=== PATIENT | male | born 1975 | race Two or more races ===

== ENCOUNTER 2018-07-14 08:32 | Emergency (ER) | payer OTHER ==
[~2018-07-14] VITALS: Ht 177.8 cm; Wt 108.9 kg
[2018-07-14] MEDS ORDERED: ASPirin 81 mg TAB PO ONE (09:30)
[2018-07-14] MEDS ORDERED: cloNIDine HCL 0.1 MG TAB PO ONE ×2 (09:30→10:30)
[2018-07-14] MEDS ORDERED: LORazepam 2MG/ML-1ML VIAL IV ONE (09:30)
[2018-07-14 09:36] LABS: Basophils # (auto) 0 uL; Basophils % (auto) 0.7 % (0.0-2.0); Eosinophils # (auto) 0.1 uL; Eosinophils % (auto) 2.1 % (0.0-7.0); Hematocrit 48.8 % (41.0-53.0); Hemoglobin 16.6 g/dL (13.5-17.5); Lymphocytes # (auto) 1.6 uL; Lymphocytes % (auto) 29.3 % (10.0-50.0); Mean Corpuscular Hemoglobin 30.2 pg (28.0-32.0); Mean Corpuscular Hgb Conc. 34.1 g/dL (32.0-36.0); Mean Corpuscular Volume 88.7 fL (80.0-100.0); Monocytes # (auto) 0.4 uL; Neutrophils # (auto) 3.4 uL; Neutrophils % (auto) 59.9 % (37.0-80.0); Platelet Count (auto) 237 10^3/uL (140-450); White Blood Cell 5.6 10^3/uL (4.4-10.8)
[2018-07-14 09:58] LABS: Alanine Aminotransferase 27 U/L (16-61); Albumin 3.9 g/dL (3.4-5.0); Anion Gap 5 (5-15); Aspartate Aminotransferase 36 U/L (15-37); BUN/Creatinine Ratio 14.9; Blood Urea Nitrogen 14 mg/dL (7-18); Calcium 8.9 mg/dL (8.5-10.1); Carbon Dioxide 27 mmol/L (21-32); Chloride 106 mmol/L (98-107); GFR African American 113 mL/min; GFR Non-African American 93 mL/min; Glucose 113 mg/dL (74-106); Potassium 3.9 mmol/L (3.5-5.1); Sodium 138 mmol/L (136-145)
[2018-07-14 10:03] LABS: Alkaline Phosphatase 95 U/L (45-117); Bilirubin, Total 1.1 mg/dL (0.2-1.0); Total Protein 8.2 g/dL (6.4-8.2)
[2018-07-14 10:42] LABS: Urine Amorphous Crystal MANY /hpf (None Seen); Urine Bacteria NONE SEEN /hpf (None Seen); Urine Blood Negative /uL (Negative); Urine Mucus FEW (None Seen); Urine Specific Gravity 1.021 (1.001-1.035); Urine WBC 1 /hpf (0 - 3)
[2018-07-14 11:55] VITALS: BP 125/91
== END 2018-07-14 12:02 | disposition home or self-care (01) ==
LOC: ER 08:32
DX: R07.89 Other chest pain (principal); I10 Essential (primary) hypertension; Z90.49 Acquired absence of other specified parts of digestive tract
CPT/HCPCS: 36415; 71046; 80053; 81001; 84484; 85025; 93005; 96374; 99284; J2060

== ENCOUNTER 2018-07-15 20:12 | Emergency (ER) | payer OTHER ==
[~2018-07-15] VITALS: Ht 177.8 cm; Wt 99.3 kg
[2018-07-15 22:50] LABS: Basophils # (auto) 0 uL; Basophils % (auto) 0.4 % (0.0-2.0); Eosinophils # (auto) 0.1 uL; Eosinophils % (auto) 0.9 % (0.0-7.0); Hematocrit 44.8 % (41.0-53.0); Hemoglobin 15.5 g/dL (13.5-17.5); Lymphocytes # (auto) 1.8 uL; Lymphocytes % (auto) 20.1 % (10.0-50.0); Mean Corpuscular Hemoglobin 30.6 pg (28.0-32.0); Mean Corpuscular Hgb Conc. 34.5 g/dL (32.0-36.0); Mean Corpuscular Volume 88.7 fL (80.0-100.0); Monocytes # (auto) 0.5 uL; Neutrophils # (auto) 6.6 uL; Neutrophils % (auto) 72.6 % (37.0-80.0); Platelet Count (auto) 240 10^3/uL (140-450); Red Blood Cells 5.06 10^6/uL (4.5-5.90); Red Cell Distribution Width 12.7 % (11.8-14.3); White Blood Cell 9.1 10^3/uL (4.4-10.8)
[2018-07-15 22:58] LABS: Albumin 3.8 g/dL (3.4-5.0); Anion Gap 6 (5-15); Blood Urea Nitrogen 13 mg/dL (7-18); Calcium 8.5 mg/dL (8.5-10.1); Carbon Dioxide 25 mmol/L (21-32); Chloride 106 mmol/L (98-107); Glucose 138 mg/dL (74-106); Potassium 3.2 mmol/L (3.5-5.1); Sodium 137 mmol/L (136-145)
[2018-07-15 23:01] LABS: Alanine Aminotransferase 26 U/L (16-61); Aspartate Aminotransferase 18 U/L (15-37); BUN/Creatinine Ratio 13.5; GFR African American 110 mL/min; GFR Non-African American 91 mL/min
[2018-07-15 23:08] LABS: Alkaline Phosphatase 88 U/L (45-117); Bilirubin, Total 0.5 mg/dL (0.2-1.0); Total Protein 7.8 g/dL (6.4-8.2)
[2018-07-16] MEDS ORDERED: ALPRAZolam 0.25 MG TAB PO ONE (07:30)
[2018-07-16] MEDS ORDERED: POTASSIUM EFFERVESENT TAB 25 MEQ PO ONE (08:00)
[2018-07-16] MEDS ORDERED: POTASSIUM CHL 20 Meq TABLET PO ONE (09:15)
[2018-07-16 10:28] VITALS: BP 146/107
[2018-07-16 11:06] LABS: Urine Bacteria NONE SEEN /hpf (None Seen); Urine Blood Negative /uL (Negative); Urine Mucus FEW (None Seen); Urine Specific Gravity 1.019 (1.001-1.035); Urine WBC 3 /hpf (0 - 3)
== END 2018-07-16 11:40 | disposition home or self-care (01) ==
LOC: ER 20:12
DX: R07.89 Other chest pain (principal); F41.9 Anxiety disorder, unspecified; I10 Essential (primary) hypertension; R20.2 Paresthesia of skin
CPT/HCPCS: 36415; 70450; 71045; 80053; 81001; 84484; 85025; 93005

== ENCOUNTER 2019-03-09 17:31 | Emergency (ER) | payer OTHER ==
[~2019-03-09] VITALS: Ht 177.8 cm; Wt 99.8 kg
[2019-03-09 18:28] LABS: Basophils # (auto) 0.1 uL; Basophils % (auto) 0.8 % (0.0-2.0); Eosinophils # (auto) 0.1 uL; Eosinophils % (auto) 1.1 % (0.0-7.0); Hematocrit 44.6 % (41.0-53.0); Hemoglobin 15.6 g/dL (13.5-17.5); Lymphocytes % (auto) 25.4 % (10.0-50.0); Mean Corpuscular Hemoglobin 30.8 pg (28.0-32.0); Mean Corpuscular Hgb Conc. 34.9 g/dL (32.0-36.0); Mean Corpuscular Volume 88.3 fL (80.0-100.0); Monocytes # (auto) 0.7 uL; Monocytes % (auto) 8.4 % (0.0-12.0); Neutrophils # (auto) 5.1 uL; Neutrophils % (auto) 64.3 % (37.0-80.0); Nucleated Red Blood Cells % 0.1 %; Platelet Count (auto) 221 10^3/uL (140-450); Red Blood Cells 5.05 10^6/uL (4.5-5.90); White Blood Cell 7.9 10^3/uL (4.4-10.8)
[2019-03-09 18:46] LABS: Albumin 4.1 g/dL (3.4-5.0); Anion Gap 7 (5-15); Blood Urea Nitrogen 16 mg/dL (7-18); Calcium 8.7 mg/dL (8.5-10.1); Carbon Dioxide 26 mmol/L (21-32); Chloride 102 mmol/L (98-107); Glucose 103 mg/dL (74-106); Potassium 3.4 mmol/L (3.5-5.1); Sodium 135 mmol/L (136-145)
[2019-03-09 18:48] LABS: BUN/Creatinine Ratio 16.7; GFR African American 109 mL/min; GFR Non-African American 90 mL/min
[2019-03-09 19:00] LABS: Alanine Aminotransferase 25 U/L (16-61); Alkaline Phosphatase 86 U/L (45-117); Aspartate Aminotransferase 22 U/L (15-37); Bilirubin, Total 0.7 mg/dL (0.2-1.0)
[2019-03-10 01:00] VITALS: BP 125/86
[2019-03-10] MEDS ORDERED: POTASSIUM CHL 10 Meq TABLET PO ONE (02:45)
== END 2019-03-10 03:02 | disposition home or self-care (01) ==
LOC: ER 17:31
DX: R07.89 Other chest pain (principal); E87.6 Hypokalemia; I10 Essential (primary) hypertension
CPT/HCPCS: 36415; 71046; 80053; 84484; 85025; 93005

== ENCOUNTER 2019-03-20 11:37 | Emergency (ER) | payer OTHER ==
[~2019-03-20] VITALS: Ht 177.8 cm; Wt 99.8 kg
[2019-03-20 14:25] VITALS: BP 124/82
== END 2019-03-20 14:29 | disposition home or self-care (01) ==
LOC: ER 11:44
DX: J32.9 Chronic sinusitis, unspecified (principal); R51 Headache; I10 Essential (primary) hypertension
CPT/HCPCS: 70450

== ENCOUNTER → 2019-04-05 | Outpatient (CLI) | payer OTHER | END | disposition home or self-care (01) | LOC: Rad HDHVI 08:47 | PROVIDERS: ATTEND Internal Medicine Cardiovascular Disease | DX: I73.9 Peripheral vascular disease, unspecified (principal); M79.669 Pain in unspecified lower leg | CPT/HCPCS: 93925; 93926 ==

== ENCOUNTER → 2019-04-23 | Emergency (ER) | payer OTHER | END | disposition left against medical advice (07) | LOC: ER 23:11 | DX: I10 Essential (primary) hypertension (principal); Z53.21 Procedure and treatment not carried out due to patient leaving prior to being seen by health care provider ==

== ENCOUNTER → 2019-05-16 | Emergency (ER) | payer OTHER | END | disposition left against medical advice (07) | LOC: ER 23:35 | DX: I10 Essential (primary) hypertension (principal); Z53.21 Procedure and treatment not carried out due to patient leaving prior to being seen by health care provider ==

== ENCOUNTER → 2019-08-12 | Emergency (ER) | payer OTHER ==
[~2019-08-12] VITALS: Ht 177.8 cm; Wt 96.4 kg
[~2019-08-12] MED LIST: cloNIDine HCL 0.1 MG TAB ONE; cloNIDine HCL 0.1 MG TAB PO ONE
[2019-08-12 23:59] LABS: Basophils # (auto) 0 10 ^3/uL (0-0.2); Basophils % (auto) 0.8 % (0.0-2.0); Eosinophils # (auto) 0.2 10 ^3/uL (0-0.8); Eosinophils % (auto) 2.7 % (0.0-7.0); Hematocrit 43.7 % (41.0-53.0); Lymphocytes # (auto) 1.9 10 ^3/uL (0.4-5.4); Lymphocytes % (auto) 32.9 % (10.0-50.0); Mean Corpuscular Hemoglobin 30.9 pg (28.0-32.0); Mean Corpuscular Hgb Conc. 34.3 g/dL (32.0-36.0); Monocytes # (auto) 0.5 10 ^3/uL (0-1.3); Monocytes % (auto) 8.3 % (0.0-12.0); Neutrophils # (auto) 3.2 10 ^3/uL (1.6-8.6); Neutrophils % (auto) 55.3 % (37.0-80.0); Nucleated Red Blood Cells % 0.1 %; Platelet Count (auto) 212 10^3/uL (140-450); Red Blood Cells 4.86 10^6/uL (4.5-5.90); Red Cell Distribution Width 13.1 % (11.8-14.3); White Blood Cell 5.8 10^3/uL (4.4-10.8)
[2019-08-13 00:17] LABS: BUN/Creatinine Ratio 13.6; Calcium 8.9 mg/dL (8.5-10.1); Potassium 3.6 mmol/L (3.5-5.1)
[2019-08-13 00:19] LABS: Bilirubin, Total 0.5 mg/dL (0.2-1.0); Total Protein 7.7 g/dL (6.4-8.2)
[2019-08-13 01:17] VITALS: BP 131/74
== END | disposition home or self-care (01) ==
LOC: ER 22:22
DX: I10 Essential (primary) hypertension (principal)
CPT/HCPCS: 36415; 71045; 80053; 85025; 93005

== ENCOUNTER 2020-04-26 14:59 | Emergency (ER) | payer OTHER ==
[~2020-04-26] VITALS: Ht 177.8 cm; Wt 95.3 kg
[2020-04-26] MEDS ORDERED: cloNIDine HCL 0.1 MG TAB PO ONE (15:15)
[2020-04-26] MEDS ORDERED: ASPirin 81 mg TAB PO ONE (15:15)
[2020-04-26 16:27] LABS: Basophils # (auto) 0 10 ^3/uL (0-0.2); Basophils % (auto) 0.6 % (0.0-2.0); Eosinophils # (auto) 0.4 10 ^3/uL (0-0.8); Eosinophils % (auto) 5.4 % (0.0-7.0); Hematocrit 40.1 % (41.0-53.0); Hemoglobin 14.3 g/dL (13.5-17.5); Lymphocytes # (auto) 0.8 10 ^3/uL (0.4-5.4); Lymphocytes % (auto) 9.8 % (10.0-50.0); Mean Corpuscular Hemoglobin 31.4 pg (28.0-32.0); Mean Corpuscular Hgb Conc. 35.7 g/dL (32.0-36.0); Mean Corpuscular Volume 87.9 fL (80.0-100.0); Monocytes # (auto) 0.6 10 ^3/uL (0-1.3); Monocytes % (auto) 7.2 % (0.0-12.0); Neutrophils # (auto) 6.5 10 ^3/uL (1.6-8.6); Platelet Count (auto) 228 10^3/uL (140-450); Red Blood Cells 4.56 10^6/uL (4.5-5.90); Red Cell Distribution Width 12.9 % (11.8-14.3); White Blood Cell 8.4 10^3/uL (4.4-10.8)
[2020-04-26 16:46] LABS: Alanine Aminotransferase 21 U/L (16-61); Albumin 3.6 g/dL (3.4-5.0); Anion Gap 7 (5-15); Aspartate Aminotransferase 19 U/L (15-37); BUN/Creatinine Ratio 15.1; Blood Urea Nitrogen 13 mg/dL (7-18); Calcium 8.5 mg/dL (8.5-10.1); Carbon Dioxide 27 mmol/L (21-32); Chloride 102 mmol/L (98-107); GFR African American 124 mL/min; GFR Non-African American 102 mL/min; Glucose 104 mg/dL (74-106); Potassium 3.8 mmol/L (3.5-5.1); Sodium 136 mmol/L (136-145)
[2020-04-26 16:50] LABS: Alkaline Phosphatase 88 U/L (45-117); Bilirubin, Total 0.5 mg/dL (0.2-1.0); INR 1.01 (0.9-1.15); Partial Thromboplastin Time 29.5 sec (23.0-31.2); Total Protein 7.5 g/dL (6.4-8.2)
[2020-04-26 17:32] VITALS: BP 136/53
== END 2020-04-26 17:34 | disposition home or self-care (01) ==
LOC: ER 14:59
DX: I10 Essential (primary) hypertension (principal); R07.9 Chest pain, unspecified; F41.9 Anxiety disorder, unspecified; R51.9 Headache, unspecified
CPT/HCPCS: 36415; 70450; 71045; 80053; 84484; 85025; 85610; 85730; 93005

== ENCOUNTER 2020-05-28 18:29 | Emergency (ER) | payer SELFPAY ==
[~2020-05-28] VITALS: Ht 177.8 cm; Wt 95.3 kg
[2020-05-28] MEDS ORDERED: cloNIDine HCL 0.1 MG TAB PO ONE (18:45)
[2020-05-28 19:40] LABS: Basophils # (auto) 0.1 10 ^3/uL (0-0.2); Basophils % (auto) 1.5 % (0.0-2.0); Eosinophils # (auto) 0.2 10 ^3/uL (0-0.8); Eosinophils % (auto) 3.4 % (0.0-7.0); Hematocrit 43.4 % (41.0-53.0); Hemoglobin 15.3 g/dL (13.5-17.5); Lymphocytes # (auto) 1.8 10 ^3/uL (0.4-5.4); Lymphocytes % (auto) 28.2 % (10.0-50.0); Mean Corpuscular Hemoglobin 30.9 pg (28.0-32.0); Mean Corpuscular Hgb Conc. 35.2 g/dL (32.0-36.0); Mean Corpuscular Volume 87.8 fL (80.0-100.0); Monocytes # (auto) 0.5 10 ^3/uL (0-1.3); Monocytes % (auto) 7.3 % (0.0-12.0); Neutrophils # (auto) 3.8 10 ^3/uL (1.6-8.6); Neutrophils % (auto) 59.6 % (37.0-80.0); Nucleated Red Blood Cells % 0.1 %; Platelet Count (auto) 220 10^3/uL (140-450); Red Blood Cells 4.94 10^6/uL (4.5-5.90); Red Cell Distribution Width 13.1 % (11.8-14.3); White Blood Cell 6.4 10^3/uL (4.4-10.8)
[2020-05-28 19:59] LABS: Albumin 3.8 g/dL (3.4-5.0); Anion Gap 5 (5-15); Blood Urea Nitrogen 16 mg/dL (7-18); Calcium 8.8 mg/dL (8.5-10.1); Carbon Dioxide 28 mmol/L (21-32); Chloride 104 mmol/L (98-107); Glucose 92 mg/dL (74-106); Potassium 3.9 mmol/L (3.5-5.1); Sodium 137 mmol/L (136-145)
[2020-05-28 20:03] LABS: Alanine Aminotransferase 24 U/L (16-61); Alkaline Phosphatase 81 U/L (45-117); Aspartate Aminotransferase 14 U/L (15-37); BUN/Creatinine Ratio 17.4; Bilirubin, Total 0.6 mg/dL (0.2-1.0); GFR African American 114 mL/min; GFR Non-African American 95 mL/min; Total Protein 8.2 g/dL (6.4-8.2)
[2020-05-28 21:39] VITALS: BP 118/79
== END 2020-05-28 21:43 | disposition home or self-care (01) ==
LOC: ER 18:29
DX: I16.0 Hypertensive urgency (principal); R51.9 Headache, unspecified
CPT/HCPCS: 36415; 70450; 80053; 84484; 85025; 93005

== ENCOUNTER 2020-05-31 11:49 | Emergency (ER) | payer SELFPAY ==
[~2020-05-31] VITALS: Ht 177.8 cm; Wt 97.5 kg
[2020-05-31 12:16] VITALS: BP 148/95
== END 2020-05-31 13:07 | disposition home or self-care (01) ==
LOC: ER 11:49
DX: I10 Essential (primary) hypertension (principal); F41.1 Generalized anxiety disorder
CPT/HCPCS: 93005

== ENCOUNTER → 2022-07-27 | Outpatient (CLI) | payer BC | END | disposition home or self-care (01) | LOC: Rad HDHVI 08:04 | PROVIDERS: ATTEND Internal Medicine Cardiovascular Disease | DX: I08.1 Rheumatic disorders of both mitral and tricuspid valves (principal); I11.9 Hypertensive heart disease without heart failure; R07.89 Other chest pain | CPT/HCPCS: 93306 ==

== ENCOUNTER 2022-11-10 13:40 | Emergency (ER) | payer BC ==
[~2022-11-10] VITALS: Ht 170.2 cm; Wt 105.0 kg
[2022-11-10 14:44] LABS: Basophils # (auto) 0.1 10 ^3/uL (0-0.2); Eosinophils # (auto) 0.2 10 ^3/uL (0-0.8); Eosinophils % (auto) 1.7 % (0.0-7.0); Hematocrit 44.5 % (41.0-53.0); Hemoglobin 15.4 g/dL (13.5-17.5); Lymphocytes # (auto) 2.3 10 ^3/uL (0.4-5.4); Lymphocytes % (auto) 26.1 % (10.0-50.0); Mean Corpuscular Hemoglobin 29.8 pg (28.0-32.0); Mean Corpuscular Hgb Conc. 34.7 g/dL (32.0-36.0); Mean Corpuscular Volume 85.9 fL (80.0-100.0); Monocytes # (auto) 0.7 10 ^3/uL (0-1.3); Monocytes % (auto) 8.1 % (0.0-12.0); Neutrophils # (auto) 5.5 10 ^3/uL (1.6-8.6); Neutrophils % (auto) 63.1 % (37.0-80.0); Nucleated Red Blood Cells % 0.1 %; Red Blood Cells 5.18 10^6/uL (4.5-5.90); Red Cell Distribution Width 12.8 % (11.8-14.3); White Blood Cell 8.8 10^3/uL (4.4-10.8)
[2022-11-10 14:57] LABS: INR 1.04 (0.9-1.15); Partial Thromboplastin Time 29.9 SEC (24.5-34.5)
[2022-11-10 15:07] LABS: Albumin 3.8 g/dL (3.4-5.0); BUN/Creatinine Ratio 15.5 (10.0-20.0); Calcium 8.7 mg/dL (8.5-10.1); Magnesium 2.2 mg/dL (1.6-2.6); Potassium 3.2 mmol/L (3.5-5.1)
[2022-11-10 15:10] LABS: Bilirubin, Total 0.7 mg/dL (0.2-1.0); Total Protein 8.2 g/dL (6.4-8.2)
[2022-11-10 15:19] LABS: Urine Bacteria NONE SEEN /hpf (None Seen); Urine Blood Negative /uL (Negative); Urine Mucus FEW (None Seen); Urine Specific Gravity 1.021 (1.001-1.035); Urine WBC <1 /hpf (0 - 3)
[2022-11-10 16:13] VITALS: BP 138/80
[2022-11-10] MEDS ORDERED: ASPirin 81 mg TAB PO ONE (16:45)
[2022-11-10] MEDS ORDERED: METH4PAK PO (16:59)
== END 2022-11-10 17:17 | disposition home or self-care (01) ==
LOC: ER 13:40
DX: G51.0 Bell's palsy (principal); F41.9 Anxiety disorder, unspecified; I10 Essential (primary) hypertension; E78.5 Hyperlipidemia, unspecified; Z90.49 Acquired absence of other specified parts of digestive tract
CPT/HCPCS: 36415; 70450; 70551; 71046; 80053; 81001; 82962; 83735; 85025; 85610; 85730

== ENCOUNTER → 2024-05-22 | Outpatient (CLI) | payer BC ==
[~2024-05-22] MED LIST changes: +METH4PAK PO; -cloNIDine HCL 0.1 MG TAB ONE; -cloNIDine HCL 0.1 MG TAB PO ONE
[2024-05-22 09:11] LABS: Urine Bacteria None Seen /hpf (None Seen)
[2024-05-22 09:45] LABS: Basophils # (auto) 0 10 ^3/uL (0-0.2); Basophils % (auto) 0.4 % (0.0-2.0); Eosinophils # (auto) 0.2 10 ^3/uL (0-0.8); Eosinophils % (auto) 3.2 % (0.0-7.0); Hemoglobin 15.5 g/dL (13.5-17.5); Lymphocytes # (auto) 1.8 10 ^3/uL (0.4-5.4); Lymphocytes % (auto) 24.2 % (10.0-50.0); Mean Corpuscular Hemoglobin 30.3 pg (28.0-32.0); Mean Corpuscular Hgb Conc. 34.5 g/dL (32.0-36.0); Mean Corpuscular Volume 87.8 fL (80.0-100.0); Monocytes # (auto) 0.5 10 ^3/uL (0-1.3); Monocytes % (auto) 7.4 % (0.0-12.0); Neutrophils # (auto) 4.8 10 ^3/uL (1.6-8.6); Neutrophils % (auto) 64.8 % (37.0-80.0); Platelet Count (auto) 238 10^3/uL (140-450); Red Blood Cells 5.12 10^6/uL (4.5-5.90); Red Cell Distribution Width 13.4 % (11.8-14.3); White Blood Cell 7.4 10^3/uL (4.4-10.8)
[2024-05-22 10:00] LABS: Urine Blood TRACE /uL (Negative); Urine Clarity Clear (Clear); Urine Color Yellow (Yellow); Urine Mucus FEW (None Seen); Urine Protein, UAD TRACE (Negative); Urine Specific Gravity 1.027 (1.001-1.035); Urine Squamous Epithelial Cell FEW /hpf (<5); Urine Urobilinogen Normal (Negative); Urine WBC 8 /hpf (0 - 3); Urine pH 6.5 (5.0-9.0)
[2024-05-22 10:11] LABS: Alanine Aminotransferase 25 U/L (7-40); Alkaline Phosphatase 100 U/L (46-116); Anion Gap 6 (5-15); Calcium 9.9 mg/dL (8.7-10.4); Carbon Dioxide 29 mmol/L (20-31); Chloride 105 mmol/L (98-107); Potassium 4.2 mmol/L (3.5-5.1); Sodium 140 mmol/L (136-145)
[2024-05-22 10:12] LABS: Blood Urea Nitrogen 15 mg/dL (9-23); Triglycerides 115 mg/dL (< 150)
[2024-05-22 10:13] LABS: LDL Cholesterol 98 mg/dL (< 100)
[2024-05-22 10:14] LABS: Albumin 4.4 g/dL (3.2-4.8); Aspartate Aminotransferase 26 U/L (13-40); Cholesterol 148 mg/dL (< 200); HDL Cholesterol 41 mg/dL (40-59)
[2024-05-22 10:15] LABS: Bilirubin, Total 0.9 mg/dL (0.2-1.0); Total Protein 7.3 g/dL (5.7-8.2)
[2024-05-22 10:16] LABS: Glucose 113 mg/dL (74-106)
[2024-05-22 11:00] LABS: Uric Acid 7.6 mg/dL (3.7-9.2)
[2024-05-22 11:17] LABS: Erythrocyte Sedimentation Rate 12 mm/hr (0-20)
== END | disposition home or self-care (01) ==
LOC: LAB 08:54
PROVIDERS: ATTEND Internal Medicine
DX: G00.1 Pneumococcal meningitis (principal); Z82.69 Family history of other diseases of the musculoskeletal system and connective tissue
CPT/HCPCS: 36415; 80053; 80061; 81001; 83036; 84439; 84443; 84550; 85025; 85652

== ENCOUNTER 2024-10-02 11:29 | Outpatient (CLI) | payer BC | END 2024-10-02 17:00 | disposition home or self-care (01) | LOC: LAB 11:29 | PROVIDERS: ATTEND Urology | DX: E29.1 Testicular hypofunction (principal); R97.20 Elevated prostate specific antigen [PSA] | CPT/HCPCS: 36415; 84153; 84403 ==

== ENCOUNTER 2025-03-24 15:44 | Emergency (ER) | payer BC ==
[~2025-03-24] VITALS: Ht 177.8 cm; Wt 110.2 kg
[2025-03-24 15:46] VITALS: BP 143/96; PULSE 90; RESP 18; TEMP 98.2; O2SAT 97
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
--- NOTE | 2025-03-24 16:49 | DVH ---
CLINICAL INDICATION: lower back pain TECHNIQUE: 4 radiographic views of the lumbar spine were obtained. Comparison: None FINDINGS/IMPRESSION: Levoscoliosis of the lumbar spine is noted. This may be due to positioning. There are no prior lumbar spine studies for comparison.
== END 2025-03-24 17:27 | disposition home or self-care (01) ==
LOC: ER 15:44
DX: S39.012A Strain of muscle, fascia and tendon of lower back, initial encounter (principal); I10 Essential (primary) hypertension; M41.9 Scoliosis, unspecified; Z90.49 Acquired absence of other specified parts of digestive tract; V43.52XA Car driver injured in collision with other type car in traffic accident, initial encounter; Y93.89 Activity, other specified; Y92.410 Unspecified street and highway as the place of occurrence of the external cause; Y99.8 Other external cause status
CPT/HCPCS: 72100